=== PATIENT | female | born 1980 ===

== ENCOUNTER 2018-08-28 02:28 | Emergency (ER) | payer MEDICAID ==
[2018-08-28] MEDS ORDERED: NACL 0.9% 1000 ML 1,000 ML IV ONE (03:36)
[2018-08-28 03:59] LABS: Basophils # (Auto) 0.1 K/mm3 (0.0-0.1); Basophils % (Auto) 0.9 % (0.0-1.8); Eosinophils # (Auto) 0.1 K/mm3 (0.0-0.4); Eosinophils % (Auto) 0.8 % (0.0-4.3); Hematocrit 39.9 % (30.3-42.9); Hemoglobin 13.6 gm/dl (10.1-14.3); Lymphocytes # (Auto) 2.7 K/mm3 (1.2-5.4); Mean Corpuscular HGB Conc 34 % (30-34); Mean Corpuscular Hemoglobin 31 pg (28-32); Mean Corpuscular Volume 91 fl (79-97); Monocytes # (Auto) 0.6 K/mm3 (0.0-0.8); Monocytes % (Auto) 7.6 % (0.0-7.3); Platelet Count 295 K/mm3 (140-440); Red Blood Count 4.37 M/mm3 (3.65-5.03); Red Cell Distribution Width 13.3 % (13.2-15.2)
[2018-08-28 05:21] LABS: Alanine Aminotransferase 14 units/L (7-56); Albumin 4.5 g/dL (3.9-5); BUN/Creatinine Ratio 16; Blood Urea Nitrogen 11 mg/dL (7-17); Calcium 9.6 mg/dL (8.4-10.2); Hemolysis Index 26
[2018-08-28 05:46] LABS: Bacteria,Urine 4+ /HPF (Negative); Bilirubin,Urine NEG (Negative); Blood,Urine MOD (Negative); Color,Urine Yellow (Yellow); Mucus,Urine FEW /HPF; Protein,Urine <15 mg/dL mg/dL (Negative); Urobilinogen,Urine < 2.0 mg/dL (<2.0)
[2018-08-28] MEDS ORDERED: TORADOL IV ONE (08:00)
[2018-08-28] MEDS ORDERED: SUBLIMAZE IV ONE (08:00)
--- NOTE | 2018-08-28 08:02 | Emergency Department Report ---
ED General Adult HPI - General Chief complaint: Abdominal Pain Stated complaint: PAIN IN L SIDE LOWER REGION Time Seen by Provider: 08/28/18 07:48 Source: patient, RN notes reviewed Mode of arrival: Ambulatory Limitations: No Limitations - History of Present Illness Initial comments: This is a 38-year-old female who is not known to this provider previously. Has a past medical history of hypertension, but reports having been off of lisinopril for the past 3 months. Surgical history includes 4 and bilateral tubal ligation. She does not have a local primary care doctor. Presents to the ER with one month of left inguinal pain. Patient reports that the pain is sharp and intermittent. It increases when she coughs, walks, strains or Valsalva's. It is currently resolved at this time. It has been present for 1 month. Currently denies nausea, vomiting. Reports new onset vaginal discharge and dysuria. Denies constipation. Denies fevers and chills. -: Gradual, month(s) (1) Location: abdomen, left (left inguinal region) Quality: aching Consistency: intermittent Improves with: other Worsens with: other Associated Symptoms: denies: confusion, chest pain, cough, diaphoresis, fever/ chills, headaches, loss of appetite, malaise, nausea/vomiting, rash, seizure, shortness of breath, syncope, weakness - Related Data Previous Rx's Medication Instructions Recorded Last Taken Type Acetaminophen [Tylenol Arthritis] 650 mg PO Q6HR PRN #30 tablet.er 08/28/18 Unknown Rx Ibuprofen [Motrin] 600 mg PO Q8H PRN #30 tablet 08/28/18 Unknown Rx Lisinopril [Zestril TAB] 20 mg PO QDAY #30 tablet 08/28/18 Unknown Rx Nitrofurantoin Rogers/M-Cryst 100 mg PO Q12HR #14 capsule 08/28/18 Unknown Rx [Macrobid CAP] Allergies Allergy/AdvReac Type Severity Reaction Status Date / Time No Known Allergies Allergy Verified 08/28/18 08:37 ED Review of Systems ROS: Stated complaint: PAIN IN L SIDE LOWER REGION Other details as noted in HPI Comment: All other systems reviewed and negative Constitutional: denies: fever Gastrointestinal: denies: nausea, vomiting, constipation Genitourinary: dysuria, discharge ED Past Medical Hx - Past Medical History Previous Medical History?: Yes Hx Hypertension: Yes - Surgical History Past Surgical History?: Yes Additional Surgical History: Tubal C section x 4 - Social History Smoking Status: Never Smoker Substance Use Type: None - Medications Home Medications: Home Medications Medication Instructions Recorded Confirmed Last Taken Type Acetaminophen [Tylenol Arthritis] 650 mg PO Q6HR PRN #30 tablet.er 08/28/18 Unknown Rx Ibuprofen [Motrin] 600 mg PO Q8H PRN #30 tablet 08/28/18 Unknown Rx Lisinopril [Zestril TAB] 20 mg PO QDAY #30 tablet 08/28/18 Unknown Rx Nitrofurantoin Rogers/M-Cryst 100 mg PO Q12HR #14 capsule 08/28/18 Unknown Rx [Macrobid CAP] ED Physical Exam - General Limitations: No Limitations General appearance: alert, in no apparent distress, obese - Head Head exam: Present: atraumatic, normocephalic - Eye Eye exam: Present: normal appearance - ENT ENT exam: Present: normal exam, normal orophraynx, mucous membranes moist, normal external ear exam - Neck Neck exam: Present: normal inspection, full ROM. Absent: tenderness, meningismus - Respiratory Respiratory exam: Present: normal lung sounds bilaterally. Absent: respiratory distress - Cardiovascular Cardiovascular Exam: Present: regular rate, normal rhythm, normal heart sounds. Absent: bradycardia, tachycardia, irregular rhythm, systolic murmur, diastolic murmur, rubs, gallop - GI/Abdominal GI/Abdominal exam: Present: soft, normal bowel sounds. Absent: distended, tenderness, guarding, rebound, rigid, pulsatile mass - External exam: Present: normal external exam Speculum exam: Present: normal speculum exam. Absent: vaginal bleeding Bi-manual exam: Present: normal bi-manual exam, other (chaperoned by nurse Rosmery Centeno). Absent: cervical motion tendernes, adnexal tenderness, adnexal mass - Extremities Exam Extremities exam: Present: normal inspection (chaperoned by nurse Rosmery Centeno) , full ROM, tenderness (as point tenderness in the left inguinal region. It is no redness, pus or streaking. There is no obvious discharge or hernia noted in the left inguinal region.), normal capillary refill, other (2+ pulses noted in the bilateral upper, lower extremities. Compartments soft. No long bony tenderness. The pelvis is stable.). Absent: pedal edema, joint swelling, calf tenderness - Back Exam Back exam: Present: normal inspection, full ROM. Absent: tenderness, CVA tenderness (R), paraspinal tenderness, vertebral tenderness - Neurological Exam Neurological exam: Present: alert, oriented X3, CN II-XII intact, normal gait, other (2+ pulses noted in the bilateral upper, lower extremities. Compartments soft. No long bony tenderness. The pelvis is stable.). Absent: motor sensory deficit - Psychiatric Psychiatric exam: Present: normal affect, normal mood - Skin Skin exam: Present: warm, dry, intact, normal color. Absent: rash ED Course Vital Signs 08/28/18 03:33 Temperature 99.1 F Pulse Rate 87 Respiratory 18 Rate Blood Pressure 187/101 O2 Sat by Pulse 99 Oximetry ED Medical Decision Making - Lab Data Result diagrams: 08/28/18 03:38 08/28/18 03:38 Vital Signs 08/28/18 03:33 Temperature 99.1 F Pulse Rate 87 Respiratory 18 Rate Blood Pressure 187/101 O2 Sat by Pulse 99 Oximetry Temp Pulse Resp BP Pulse Ox 99.1 F 87 18 187/101 99 08/28/18 03:33 08/28/18 03:33 08/28/18 03:33 08/28/18 03:33 08/28/18 03:33 Lab Results 08/28/18 08/28/18 08/28/18 Range/Units 03:38 03:38 04:59 WBC 7.6 (4.5-11.0) K/mm3 RBC 4.37 (3.65-5.03) M/mm3 Hgb 13.6 (10.1-14.3) gm/dl Hct 39.9 (30.3-42.9) % MCV 91 (79-97) fl MCH 31 (28-32) pg MCHC 34 (30-34) % RDW 13.3 (13.2-15.2) % Plt Count 295 (140-440) K/mm3 Lymph % (Auto) 35.0 (13.4-35.0) % Rogers % (Auto) 7.6 H (0.0-7.3) % Eos % (Auto) 0.8 (0.0-4.3) % Baso % (Auto) 0.9 (0.0-1.8) % Lymph # 2.7 (1.2-5.4) K/mm3 Rogers # 0.6 (0.0-0.8) K/mm3 Eos # 0.1 (0.0-0.4) K/mm3 Baso # 0.1 (0.0-0.1) K/mm3 Seg Neutrophils % 55.7 (40.0-70.0) % Seg Neutrophils # 4.2 (1.8-7.7) K/mm3 Sodium 139 (137-145) mmol/L Potassium 3.8 (3.6-5.0) mmol/L Chloride 104.2 (98-107) mmol/L Carbon Dioxide 22 (22-30) mmol/L Anion Gap 17 mmol/L BUN 11 (7-17) mg/dL Creatinine 0.7 (0.7-1.2) mg/dL Estimated GFR > 60 ml/min BUN/Creatinine Ratio 16 % Glucose 83 (65-100) mg/dL Calcium 9.6 (8.4-10.2) mg/dL Total Bilirubin 0.30 (0.1-1.2) mg/dL AST 15 (5-40) units/L ALT 14 (7-56) units/L Alkaline Phosphatase 68 (35-129) units/L Total Protein 7.8 (6.3-8.2) g/dL Albumin 4.5 (3.9-5) g/dL Albumin/Globulin Ratio 1.4 % Urine Color Yellow (Yellow) Urine Turbidity Hazy (Clear) Urine pH 6.0 (5.0-7.0) Ur Specific [place] 1.012 (1.003-1.030) Urine Protein <15 mg/dl (Negative) mg/dL Urine Glucose (UA) Neg (Negative) mg/dL Urine Ketones Neg (Negative) mg/dL Urine Blood Mod (Negative) Urine Nitrite Neg (Negative) Urine Bilirubin Neg (Negative) Urine Urobilinogen < 2.0 (<2.0) mg/dL Ur Leukocyte Esterase Mod (Negative) Urine WBC (Auto) 26.0 H (0.0-6.0) /HPF Urine RBC (Auto) 18.0 (0.0-6.0) /HPF U Epithel Cells (Auto) 1.0 (0-13.0) /HPF Urine Bacteria (Auto) 4+ (Negative) /HPF Urine Mucus Few /HPF - Radiology Data Radiology results: report reviewed, image reviewed CT scan of the abdomen and pelvis demonstrates bilateral inguinal hernias, left sudden inguinal fat-containing hernia without abdominal contents, left inguinal fat hernia may have fat strangulation. There is diastases of the rectus muscle with a broad-based protrusion and superimposed fat-containing umbilical hernia. - Medical Decision Making Differential diagnosis, including not limited to: Multiple hernias, vaginitis, trichomoniasis, urinary tract infection Assessment and plan: 38-year-old female with a primary complaint of intermittent inguinal pain, no obvious hernia noted on physical exam, with a CT scan that suggests possible strain related fat contents. She is afebrile with reassuring vital signs with the exception of elevated blood pressure. He is not acutely infected on physical exam, and Skin does not find any emergent surgical disease that would require emergent surgical intervention. Strength related fat contents are appreciated on CT scan, and this is discussed with the general surgeon on-call, Dr. Dmitry Araya, who also agrees that patient does not require emergent surgical intervention. She graciously agrees to follow the patient up within the next week for outpatient management and elective surgical correction. Elevated blood pressure is reviewed and appreciated, patient has been noncompliant with antihypertensive therapy for the past 3 months. Does not require emergent intervention at this time, please reference the [employer] clinical policy on hypertension but is not acutely systematic. The patient's lisinopril will be refilled, and she is counseled to follow-up for her elevated blood pressure. Her wet prep demonstrated the presence of trichomoniasis, and patient will be treated empirically with ceftriaxone, azithromycin and Flagyl. Appropriate STD instructions were reviewed with the patient. She is medically suitable for discharge at this point in time, instructed to follow up. Critical care attestation.: If time is entered above; I have spent that time in minutes in the direct care of this critically ill patient, excluding procedure time. ED Disposition Clinical Impression: Hypertension, Trichomoniasis, Inguinal hernia Disposition: DC-01 TO HOME OR SELFCARE Is pt being admited?: No Does the pt Need Aspirin: No Condition: Stable Instructions: Hypertension (ED) Additional Instructions: CT scan of the abdomen and pelvis demonstrated multiple inguinal hernias and abdominal wall hernias. Follow-up with a general surgeon within the next 7-10 days for evaluation for outpatient elective surgical correction. Dr. Araya is a local general surgeon. Wet prep demonstrated the presence of trichomoniasis which is considered a sexually-transmitted disease. Patient has received antibiotics for this, as well as empiric antibiotic coverage for gonorrhea/chlamydia. However, please note that the patient has not been formally diagnosed with gonorrhea or chlamydia, and it is typical practice to cover for all of the aforementioned when one of them is present. In addition, urinalysis suggested urinary tract infection. Cultures was sent today, and results will be available in the next 3-5 days. Have a primary care doctor or database administrator contact the medical records department to obtain culture results. Take the antibiotic therapy as directed. Take the nausea medication and pain medication as directed. I recommend outpatient testing for sexually transmitted diseases, including hepatitis, syphilis and HIV. I also recommend that you abstain from sexual activity until you have completed her antibiotic therapy, a physician states that it is safe for you to resume sexual activity, and any partners that you have been sexually active with have been tested/ treated/evaluated for sexual transmitted diseases. Please note that blood pressure was elevated, and this should be checked/ followed up by primary care doctor within the next 4 weeks. Long-term complications of hypertension and elevated blood pressure include stroke, heart attack, disability, paralysis, loss of quality of life. Does not consume alcohol for the next 3 days. I recommend that you return to the ER right away with worsening pain, migration of pain, intractable nausea/vomiting, inability tolerate liquid feeds. Prescriptions: Acetaminophen [Tylenol Arthritis] 650 mg PO Q6HR PRN #30 tablet.er PRN Reason: Pain Ibuprofen [Motrin] 600 mg PO Q8H PRN #30 tablet PRN Reason: Pain Lisinopril [Zestril TAB] 20 mg PO QDAY #30 tablet Nitrofurantoin Rogers/M-Cryst [Macrobid CAP] 100 mg PO Q12HR #14 capsule Referrals: [facility] [Provider Group] - 3-5 Days [facility] [Provider Group] - 3-5 Days MELBA ARAYA DO [Staff Physician] - 3-5 Days
[2018-08-28] MEDS ORDERED: ROCEPHIN IV ONE (09:13)
[2018-08-28] MEDS ORDERED: ZITHROMAX PO ONE (09:13)
[2018-08-28] MEDS ORDERED: FLAGYL PO STA (09:13)
--- NOTE | 2018-08-28 09:20 | Cat Scan Report ---
FINAL REPORT EXAM: CT ABDOMEN PELVIS W CON HISTORY: LLQ pain, left inguinal pain TECHNIQUE: CT of the abdomen and pelvis with IV contrast. Coronal and sagittal reconstructed imaging provided. PRIORS: None currently available. FINDINGS: ABDOMEN: Liver, gallbladder, stomach, spleen, pancreas, adrenals, and kidneys are unremarkable. IVC is unremarkable. No aortic aneurysm or dissection. No periaortic or retroperitoneal mass or adenopathy. [id number] stool. No wall thickening or inflammatory changes. Terminal ileum is unremarkable. Appendix is normal. Small bowel loops are unremarkable. No obstructive pattern. No free air. No free fluid. Mesentery is unremarkable. Diastasis recti with a broad-based protrusion and superimposed fat containing umbilical hernia. No strangulation. PELVIS: Two clips in the left adnexa. One clip in the anterior pelvis. Findings may be related to tubal ligation clips. Right clips may have been dislodged. Limited CT images of the uterus are unremarkable. Oval low-attenuation lesion with rim enhancement in the right pelvis on series 2:146 measures 2.0 cm. Bladder is unremarkable. There is no pelvic mass or adenopathy. Series 2:168 demonstrates a direct inguinal hernia measuring 12 x 22 mm which demonstrates soft tissue density. There is a fat containing right inguinal hernia without stranding measuring 12 mm. Bones: No suspicious osseous lesions on this limited examination of the skeleton. Metastatic disease better evaluated with bone scan. IMPRESSION: Bilateral inguinal hernias. Right demonstrates fat without stranding. Left demonstrates soft tissue density which is concerning for strangulation. Probable right ovary with corpus luteal cyst. Possible tubal ligation clips. August 28, 2018 at 0620 PDT: I discussed the findings over phone with MIKE Centeno.
[2018-08-28 10:36] VITALS: BP 177/105
== END 2018-08-28 09:40 | disposition home or self-care (01) ==
LOC: ED 02:28
DX: K40.90 Unilateral inguinal hernia, without obstruction or gangrene, not specified as recurrent (principal); A59.9 Trichomoniasis, unspecified; I10 Essential (primary) hypertension; Z98.51 Tubal ligation status
CPT/HCPCS: 36415; 74177; 80053; 81001; 85025; 87210; 87591; 96374; 96375; 99284; J0696; J1885; Q9967